=== PATIENT | male | born 1965 | race Hispanic/Latino ===

== ENCOUNTER 2017-07-14 10:08 | Emergency (ER) | payer SELFPAY ==
[2017-07-14] MEDS ORDERED: Ketorolac Tromethamine 60 MG/2 ML VIAL ONE (10:20)
[2017-07-14 11:12] LABS: Bilirubin Negative (Negative); Blood, Urine Negative (Negative); Clarity CLEAR (Clear); Glucose, Urine (Dipstick) Negative (Negative); Leukocyte Negative (Negative); Nitrite Negative (Negative); Protein, Urine (Dipstick) Negative (Neg-Trace); Urobilinogen 0.2 mg/dL (0.2-1.0)
== END 2017-07-14 11:35 | disposition home or self-care (01) ==
LOC: ERS 10:08
DX: M54.5 Low back pain (principal)
CPT/HCPCS: 81003; 96372; J1885